=== PATIENT | female | born 1965 | race Caucasian/White ===

== ENCOUNTER 2023-04-28 10:57 | Emergency (ER) | payer MEDICAID ==
[~2023-04-28] VITALS: Ht 152.4 cm; Wt 63.0 kg
[2023-04-28 11:17] VITALS: BP 131/81; PULSE 120; RESP 20; TEMP 98.5; O2SAT 100
[2023-04-28] MEDS ORDERED: ACETAMINOPHEN 325MG TABLET PO STA (11:45)
[2023-04-28 12:26] LABS: CLARITY URINE CLEAR (CLEAR); COLOR URINE YELLOW (YELLOW); GLUCOSE URINE 3+ (NEGATIVE); KETONES URINE 1+ (NEGATIVE); LEUKOCYTE ESTERASE URINE NEGATIVE (NEGATIVE); NITRITE URINE POSITIVE (NEGATIVE); OCCULT BLOOD URINE NEGATIVE (NEGATIVE); PH URINE 5.5 (4.5-8.0); PROTEIN URINE NEGATIVE (NEGATIVE)
[2023-04-28] MEDS ORDERED: CEPHALEXIN 250MG CAPSULE PO ONE (12:30)
[2023-04-28 12:40] LABS: BACTERIA URINE 4+; RBC URINE 0-2 /hpf (0-2); SQUAMOUS EPITHELIAL CELL URINE 1+ /lpf (RARE/1+); YEAST URINE NONE SEEN
[2023-04-28 13:15] LABS: ALANINE AMINOTRANSFERASE 61 IU/L (10-49); ALBUMIN 4.3 g/dL (3.2-4.8); ASPARTATE AMINOTRANSFERASE 45 IU/L (<34); BILIRUBIN TOTAL 0.6 mg/dL (0.1-1.0); CALCIUM 9.4 mg/dL (8.7-10.4); CARBON DIOXIDE 27 mEq/L (21-32); CHLORIDE 99 mEq/L (98-107); CREATININE 0.6 mg/dL (0.6-1.0); GLUCOSE 325 mg/dL (70-105); POTASSIUM 3.8 mEq/L (3.5-5.1); PROTEIN TOTAL 7.9 g/dL (6.0-8.3); SODIUM 134 mEq/L (136-145); UREA NITROGEN BLOOD 8 mg/dL (9-23)
[2023-04-28 13:28] LABS: BASOPHILS % 0.3 % (0.0-2.0); EOSINOPHILS % 0.4 % (0.0-5.0); HEMATOCRIT. 44.8 % (36.0-48.0); HEMOGLOBIN. 15.4 g/dL (12.0-16.0); LYMPHOCYTES % 10.5 % (20.0-50.0); MEAN CORPUSCULAR HEMOGLOBIN 32.1 pg (28.0-32.0); MEAN CORPUSCULAR HGB CONC 34.3 g/dL (31.0-37.0); MEAN CORPUSCULAR VOLUME 93.8 fL (81.0-99.0); MEAN PLATELET VOLUME 8.4 fl (7.4-10.4); MONOCYTES % 5.9 % (2.0-8.0); NEUTROPHILS % 82.9 % (40.0-76.0); PLATELET 210 x1000/uL (130-400); RED BLOOD CELL COUNT 4.78 mill/uL (4.2-5.4); RED CELL DISTRIBUTION WIDTH 12.1 % (11.6-14.6); WHITE BLOOD COUNT 8.8 x1000/uL (4.5-11.0)
[2023-04-28] MEDS ORDERED: CEPH500C2 MT (16:20)
== END 2023-04-28 14:29 | disposition left against medical advice (07) ==
LOC: ER 10:57
DX: B34.9 Viral infection, unspecified (principal); N39.0 Urinary tract infection, site not specified; F41.9 Anxiety disorder, unspecified; I10 Essential (primary) hypertension; F32.A Depression, unspecified; E11.9 Type 2 diabetes mellitus without complications; Z20.822 Contact with and (suspected) exposure to COVID-19; Z98.890 Other specified postprocedural states
CPT/HCPCS: 99284; 71045; 87426; 80053; 81003; 81025; 85025; 87804 ×2; 36415; C9803

== ENCOUNTER 2024-01-02 22:46 | Emergency (ER) | payer MEDICAID, OTHER ==
[~2024-01-02] VITALS: Ht 157.5 cm; Wt 70.0 kg
[~2024-01-02 22:46] MED LIST: CEPH500C2 MT
[2024-01-02 23:04] VITALS: BP 146/69; PULSE 94; RESP 20; O2SAT 100
[2024-01-03] MEDS ORDERED: LIDO700A15 TP (00:58)
[2024-01-03] MEDS ORDERED: NAPR-1176 MT (00:58)
[2024-01-03] MEDS: KETOROLAC 15MG/ML VIAL IM ONE (01:51)
== END 2024-01-03 02:20 | disposition home or self-care (01) ==
LOC: ER 22:46
DX: S90.32XA Contusion of left foot, initial encounter (principal); E11.9 Type 2 diabetes mellitus without complications; X58.XXXA Exposure to other specified factors, initial encounter; Y93.89 Activity, other specified; Y92.89 Other specified places as the place of occurrence of the external cause; Y99.8 Other external cause status
CPT/HCPCS: 73630; 99283; 96372; J1885; Z7610

== ENCOUNTER 2024-04-06 17:27 | Emergency (ER) | payer OTHER ==
[~2024-04-06] VITALS: Ht 149.9 cm; Wt 63.0 kg
[~2024-04-06 17:27] MED LIST changes: +LIDO700A15 TP; +NAPR-1176 MT
[2024-04-06 17:30] VITALS: O2SAT 98
[2024-04-06 18:01] VITALS: BP 121/78; PULSE 96; RESP 16; TEMP 98; O2SAT 99
[2024-04-06] MEDS ORDERED: ACYC200C31 PO (18:36)
== END 2024-04-06 19:11 | disposition home or self-care (01) ==
LOC: ER 17:27
DX: R21 Rash and other nonspecific skin eruption (principal); E11.9 Type 2 diabetes mellitus without complications; Z79.1 Long term (current) use of non-steroidal anti-inflammatories (NSAID); Z79.624 Long term (current) use of inhibitors of nucleotide synthesis
CPT/HCPCS: 99283